=== PATIENT | male | born 2000 | race Two or more races ===

== ENCOUNTER 2022-09-02 02:10 | Emergency (ER) | payer MEDICAID ==
[~2022-09-02] VITALS: Ht 185.4 cm; Wt 167.8 kg
[2022-09-02 03:05] VITALS: BP 148/88
--- NOTE | 2022-09-02 03:05 | NUR ---
BIBSELF C/O RIGHT KNEE PAIN S/P FALL AROUND 11PM. PATIENT IS AAOX4. AMBULATORY. COMPLAINING ALSO OF PAIN. VITALS CHECKED.
--- NOTE | 2022-09-02 03:20 | NUR ---
XRAY DONE AT BEDSIDE
[2022-09-02] MEDS ORDERED: IBUPROFEN 400 MG TABLET ONE (03:25)
[2022-09-02] MEDS ORDERED: IBUPROFEN 400 MG TABLET PO ONE (03:30)
== END 2022-09-02 03:42 | disposition home or self-care (01) ==
LOC: ER 02:17
DX: S83.91XA Sprain of unspecified site of right knee, initial encounter (principal); Z88.8 Allergy status to other drugs, medicaments and biological substances; Z60.2 Problems related to living alone; W18.30XA Fall on same level, unspecified, initial encounter; Y93.01 Activity, walking, marching and hiking; Y92.89 Other specified places as the place of occurrence of the external cause; Y99.8 Other external cause status
CPT/HCPCS: 73564-TC

== ENCOUNTER 2023-04-03 09:11 | Emergency (ER) | payer MEDICAID ==
[~2023-04-03] VITALS: Ht 182.9 cm; Wt 181.4 kg
--- NOTE | 2023-04-03 09:20 | NUR ---
PT CAME IN DUE TO HEADACHE DUE TO MIGRAINE AND JAW PAIN WITH CLICKING SOUND AFTER SMOKING 11 CIGARETTES YESTERDAY. PAIN IS 5/10, HE IS ALSO SLEEP DEPRIVE CLAIMED BY PT.
[2023-04-03] MEDS ORDERED: ACETAMINOPHEN ES 500 MG TABLET ONE (10:08)
[2023-04-03] MEDS ORDERED: KETOROLAC TROMETHAMINE INJ 30 MG/ML VIAL ONE (10:08)
[2023-04-03] MEDS ORDERED: ACETAMINOPHEN ES 500 MG TABLET PO ONE (10:30)
[2023-04-03] MEDS ORDERED: KETOROLAC TROMETHAMINE INJ 30 MG/ML VIAL IM ONE (10:30)
[2023-04-03] MEDS ORDERED: KETO10TA2 PO (11:07)
[2023-04-03] MEDS ORDERED: ACET-2605 PO (11:07)
[2023-04-03 11:21] VITALS: BP 111/88
--- NOTE | 2023-04-03 11:22 | NUR ---
Patient discharged to home in stable condition. Written and verbal after care instructions given. Patient verbalizes understanding of instruction.
== END 2023-04-03 11:21 | disposition home or self-care (01) ==
LOC: ER 09:12
DX: M26.602 Left temporomandibular joint disorder, unspecified (principal); Z88.8 Allergy status to other drugs, medicaments and biological substances; Z60.2 Problems related to living alone
CPT/HCPCS: 99285; 70486; 96372; J1885

== ENCOUNTER 2024-05-20 06:01 | Emergency (ER) | payer OTHER ==
[~2024-05-20] VITALS: Ht 182.9 cm; Wt 181.4 kg
[~2024-05-20 06:01] MED LIST: ACET-2605 PO; KETO10TA2 PO
[2024-05-20 06:15] VITALS: BP 134/88; TEMP 98.5
[2024-05-20] MEDS ORDERED: AZIT250T13 PO (06:49)
[2024-05-20] MEDS ORDERED: BENZ-13 PO (06:49)
[2024-05-20 07:04] VITALS: O2SAT 97
== END 2024-05-20 07:04 | disposition home or self-care (01) ==
LOC: ER 06:01
DX: J06.9 Acute upper respiratory infection, unspecified (principal); R05.9 Cough, unspecified; R09.81 Nasal congestion; H92.01 Otalgia, right ear; R06.02 Shortness of breath; Z88.8 Allergy status to other drugs, medicaments and biological substances; Z20.822 Contact with and (suspected) exposure to COVID-19; Z60.2 Problems related to living alone

== ENCOUNTER 2024-08-18 04:50 | Emergency (ER) | payer MEDICAID ==
[~2024-08-18] VITALS: Ht 182.9 cm; Wt 165.6 kg
[~2024-08-18 04:50] MED LIST changes: +AZIT250T13 PO; +BENZ-13 PO
[2024-08-18 07:04] VITALS: BP 121/84; TEMP 98.8; O2SAT 97
== END 2024-08-18 07:05 | disposition home or self-care (01) ==
LOC: ER 04:54
DX: S90.112A Contusion of left great toe without damage to nail, initial encounter (principal); Z88.8 Allergy status to other drugs, medicaments and biological substances; W31.89XA Contact with other specified machinery, initial encounter; Y93.89 Activity, other specified; Y92.89 Other specified places as the place of occurrence of the external cause; Y99.8 Other external cause status
CPT/HCPCS: 73660-TC

== ENCOUNTER 2024-08-31 00:47 | Emergency (ER) | payer MEDICAID ==
[~2024-08-31] VITALS: Ht 185.4 cm; Wt 158.8 kg
[2024-08-31] MEDS ORDERED: AMOX500C2 PO (01:50)
[2024-08-31] MEDS ORDERED: AMOXICILLIN TRIHYDRATE 250 MG CAPSULE ONE (02:01)
[2024-08-31] MEDS: AMOXICILLIN TRIHYDRATE 500 MG CAPSULE PO ONE (02:04)
[2024-08-31 02:37] VITALS: TEMP 98.2
[2024-08-31 04:14] VITALS: BP 119/74; O2SAT 99
== END 2024-08-31 02:14 | disposition home or self-care (01) ==
LOC: ER 00:47
DX: M79.675 Pain in left toe(s) (principal); Z86.69 Personal history of other diseases of the nervous system and sense organs; Z86.79 Personal history of other diseases of the circulatory system; Z87.19 Personal history of other diseases of the digestive system; Z87.39 Personal history of other diseases of the musculoskeletal system and connective tissue; Z88.8 Allergy status to other drugs, medicaments and biological substances; Z60.2 Problems related to living alone